=== PATIENT | female | born 1985 | race Asian ===

== ENCOUNTER 2017-08-29 00:46 | Inpatient (IN) | payer OTHER ==
[2017-08-29] MEDS ORDERED: fentaNYL* 50 MCG/ML 2 ML VIAL (100 MCG VIAL) ONE (04:51)
[2017-08-29] MEDS ORDERED: OBEPIDURAL* 250 ML ONE (04:52)
[2017-08-29 04:56] LABS: Add Diff/Slide Review? Slide Review Added; Comments Flag Yes; Hematocrit 35 % (35-47); Mean Corpuscular HGB Conc 34 g/dl (31-36); Mean Corpuscular Hemoglobin 32 pg (27-31); Mean Corpuscular Volume 94 fL (80-97); Mean Platelet Volume 10 um3 (7.4-10.4); Red Blood Count 3.78 10^6/ul (4.0-5.4); Red Cell Distribution Width 13 % (10.5-15); White Blood Count 18.7 10^3/ul (3.5-10.8)
[2017-08-29] MEDS ORDERED: Phenylephrine IV* 40 MCG/ML 10 ML SYRINGE IV PUSH PRN ×2 (05:44)
[2017-08-29] MEDS ORDERED: Famotidine TAB* 20 MG PO PRN (05:44)
[2017-08-29] MEDS ORDERED: Sodium Citrate/Citric Acid* 15 ML UDC PO PRN (05:44)
[2017-08-29] MEDS ORDERED: OBEPIDURAL* 250 ML EPIDURAL SCH (06:00)
[2017-08-29] MEDS ORDERED: Influenza VAC *QUAD* 2017-18* 0.5 ML SYRINGE IM ONE (09:00)
[2017-08-29] MEDS ORDERED: Oxytocin in LR* 20 UNITS/1,000 ML BAG IVPB SCH (09:00)
[2017-08-29] MEDS ORDERED: Dibucaine 1% 28.35 GM TUBE PR PRN (21:16)
[2017-08-29] MEDS ORDERED: Glycerin ADULT SUPP PR PRN (21:16)
[2017-08-29] MEDS ORDERED: Witch Hazel PAD* JAR TOPICAL PRN (21:16)
[2017-08-29] MEDS ORDERED: Acetaminophen TAB* 325 MG PO PRN (21:16)
[2017-08-30 06:32] LABS: Hematocrit 27 % (35-47); Hemoglobin 9.1 g/dl (12.0-16.0); Mean Corpuscular HGB Conc 34 g/dl (31-36); Mean Corpuscular Hemoglobin 32 pg (27-31); Mean Corpuscular Volume 94 fL (80-97); Mean Platelet Volume 10 um3 (7.4-10.4); Red Blood Count 2.84 10^6/ul (4.0-5.4); Red Cell Distribution Width 14 % (10.5-15); White Blood Count 21.9 10^3/ul (3.5-10.8)
[2017-08-30] MEDS: Ibuprofen TAB* 600 MG PO PRN ×2 (07:59→23:48)
[2017-08-30] MEDS: Docusate CAP* 100 MG PO SCH ×3 (07:59→20:55)
[2017-08-30] MEDS ORDERED: Simethicone TAB* 80 MG TAB.CHEW PO SCH (08:30)
[2017-08-30] MEDS: Ferrous Gluconate TAB* 324 MG TAB PO SCH ×2 (10:08→20:56)
[2017-08-31 07:46] VITALS: BP 106/72
[2017-08-31] MEDS: Ibuprofen TAB* 600 MG PO PRN ×2 (08:19→14:15)
[2017-08-31] MEDS: Docusate CAP* 100 MG PO SCH ×2 (08:19→14:15)
[2017-08-31] MEDS: Ferrous Gluconate TAB* 324 MG TAB PO SCH (08:20)
--- NOTE | 2017-08-31 12:58 | PTEDU ---
Patient Name: JOSÉ GONSALES JOSÉ GONSALES selected video: Never Ever Shake a Baby to view on 08/31/2017 at 12:57:34 PM [id number]
--- NOTE | 2017-08-31 13:11 | PTEDU ---
Patient Name: JOSÉ GONSALES JOSÉ GONSALES selected video: BBOB: Nurturing Your Gorgeous &Growing Baby by to view on 08/31 at 1:10:44 [id number]
== END 2017-08-31 15:35 | disposition home or self-care (01) | DRG 774 ==
LOC: MCHOBOUT 00:46 → MCHOB 03:29
PROVIDERS: ADMIT Midwife; ATTEND Obstetrics & Gynecology
PROC: 10D07Z6 Extraction of Products of Conception, Vacuum, Via Natural or Artificial Opening (ICD-10-PCS; principal; 2017-08-29)
PROC: 0KQM0ZZ Repair Perineum Muscle, Open Approach (ICD-10-PCS; 2017-08-29)
PROC: 4A1HXCZ Monitoring of Products of Conception, Cardiac Rate, External Approach (ICD-10-PCS; 2017-08-29)
PROC: 0W8NXZZ Division of Female Perineum, External Approach (ICD-10-PCS; 2017-08-29)
PROC: 10907ZC Drainage of Amniotic Fluid, Therapeutic from Products of Conception, Via Natural or Artificial Opening (ICD-10-PCS; 2017-08-29)
DX: O48.0 Post-term pregnancy (principal); O98.42 Viral hepatitis complicating childbirth; O75.89 Other specified complications of labor and delivery; K64.9 Unspecified hemorrhoids; B18.1 Chronic viral hepatitis B without delta-agent; Z37.0 Single live birth; Z3A.40 40 weeks gestation of pregnancy; O90.81 Anemia of the puerperium; D64.9 Anemia, unspecified; O75.81 Maternal exhaustion complicating labor and delivery; O70.1 Second degree perineal laceration during delivery; Z23 Encounter for immunization
CPT/HCPCS: 36415; 85025; 86850; 86900; 86901; 90686; A9270-GY; J3010